=== PATIENT | female | born 1965 | race Caucasian/White ===

== ENCOUNTER → 2019-09-15 | Outpatient (CLI) | payer OTHER | LOC: M.WC 07:43 | DX: S67.191A Crushing injury of left index finger, initial encounter (principal); F17.200 Nicotine dependence, unspecified, uncomplicated; Z85.820 Personal history of malignant melanoma of skin; X58.XXXA Exposure to other specified factors, initial encounter; Y93.89 Activity, other specified; Y92.89 Other specified places as the place of occurrence of the external cause; Y99.8 Other external cause status ==

== ENCOUNTER → 2019-09-22 | Outpatient (CLI) | payer OTHER | LOC: M.WC 02:30 | DX: S67.191D Crushing injury of left index finger, subsequent encounter (principal); F17.200 Nicotine dependence, unspecified, uncomplicated; Z85.820 Personal history of malignant melanoma of skin; X58.XXXD Exposure to other specified factors, subsequent encounter ==